=== PATIENT | male | born 1965 | race Caucasian/White ===

== ENCOUNTER 2018-11-24 17:20 | Emergency (ER) | payer BC ==
--- OUTSIDE RECORDS SUMMARY | 2018-11-24 17:21 | XMS REPORT ---
:1965 [facility] [address] [place] [address] Care Team Providers Name Role Phone Unavailable Unavailable Unavailable Problems This patient has no known problems. Allergies, Adverse Reactions, Alerts This patient has no known allergies or adverse reactions. Medications This patient has no known medications.
[2018-11-24] MEDS ORDERED: MEPERIDINE HCL 50 MG/ML AMP ONE (18:23)
[2018-11-24] MEDS ORDERED: ONDANSETRON 4 MG (ODT) TAB ONE (18:23)
[2018-11-24] MEDS ORDERED: DEXAMETHASONE 10 MG/ML VIAL ONE (18:23)
--- NOTE | 2018-11-24 18:50 | EDPHYS ---
Physician Documentation [facility] Name: Luis Marc Age: 53 yrs Sex: Male : 1965 Arrival Date: 11/24/2018 Time: 17:22 Bed 18 Private MD: Turner Delgado S ED Physician Jacob Vargas HPI: 11/24 17:58 This 53 yrs old Male presents to ER via Ambulatory with complaints of Low jr8 Back Pain. 17:58 The patient presents with pain that is acute. The symptoms are located in the low back. jr8 The pain does not radiate. The problem was sustained from unknown cause. Onset: The symptoms/episode began/occurred acutely, yesterday. Modifying factors: The patient symptoms are alleviated by nothing, the patient symptoms are aggravated by any movement. Associated signs and symptoms: The patient has no apparent associated signs or symptoms. Severity of symptoms: At their worst the symptoms were moderate, in the emergency department the symptoms are unchanged. The patient has experienced similar episodes in the past, a few times. The patient has not recently seen a physician. History of lumbar laminectomy and fusion in past. Has pain on/off. Starting yesterday had increase in pain. No numbness, tingling, saddle anesthesia, weakness, or inability to walk. No bowel or bladder incontinence . Historical: - Allergies: 17:27 No Known Allergies; hj - Home Meds: 17:27 Omeprazole Oral once daily [Active]; amlodipine oral [Active]; hj - PMHx: 17:27 GERD; Hypertension; hj - PSHx: 17:27 back srugery; hj - Immunization history:: Adult Immunizations up to date. - Social history:: Smoking status: Patient uses tobacco products, Patient uses alcohol. - Ebola Screening: : Patient negative for fever greater than or equal to 101.5 degrees Fahrenheit, and additional compatible Ebola Virus Disease symptoms Patient denies exposure to infectious person Patient denies travel to an Ebola-affected area in the 21 days before illness onset. ROS: 17:58 Eyes: Negative for injury, pain, redness, and discharge, ENT: Negative for injury, jr8 pain, and discharge, Neck: Negative for injury, pain, and swelling, Cardiovascular: Negative for chest pain, palpitations, and edema, Respiratory: Negative for shortness of breath, cough, wheezing, and pleuritic chest pain, Abdomen/GI: Negative for abdominal pain, nausea, vomiting, diarrhea, and constipation, MS/Extremity: Negative for injury and deformity, Skin: Negative for injury, rash, and discoloration, Neuro: Negative for headache, weakness, numbness, tingling, and seizure. 17:58 Back: Positive for pain at rest, pain with movement, of the low back area. Exam: 18:47 Eyes: Pupils equal round and reactive to light, extra-ocular motions intact. Lids and jr8 lashes normal. Conjunctiva and sclera are non-icteric and not injected. Cornea within normal limits. Periorbital areas with no swelling, redness, or edema. ENT: Nares patent. No nasal discharge, no septal abnormalities noted. Tympanic membranes are normal and external auditory canals are clear. Oropharynx with no redness, swelling, or masses, exudates, or evidence of obstruction, uvula midline. Mucous membranes moist. Neck: Trachea midline, no thyromegaly or masses palpated, and no cervical lymphadenopathy. Supple, full range of motion without nuchal rigidity, or vertebral point tenderness. No Meningismus. Cardiovascular: Regular rate and rhythm with a normal S1 and S2. No gallops, murmurs, or rubs. Normal PMI, no JVD. No pulse deficits. Respiratory: Lungs have equal breath sounds bilaterally, clear to auscultation and percussion. No rales, rhonchi or wheezes noted. No increased work of breathing, no retractions or nasal flaring. Abdomen/GI: Soft, non-tender, with normal bowel sounds. No distension or tympany. No guarding or rebound. No evidence of tenderness throughout. Skin: Warm, dry with normal turgor. Normal color with no rashes, no lesions, and no evidence of cellulitis. MS/ Extremity: Pulses equal, no cyanosis. Neurovascular intact. Full, normal range of motion. Neuro: Awake and alert, GCS 15, oriented to person, place, time, and situation. Cranial nerves II-XII grossly intact. Motor strength 5/5 in all extremities. Sensory grossly intact. Cerebellar exam normal. Normal gait. 18:47 Back: pain, that is mild, of the lumbar area, left low back and right low back, ROM is painful, normal spinal alignment noted, CVA tenderness, is absent, vertebral tenderness, is not appreciated, muscle spasm, is appreciated in the left low back and right low back. Vital Signs: 17:28 BP 133 / 90; Pulse 75; Resp 18; Temp 98.0(O); Pulse Ox 98% on R/A; Weight 113.4 kg; hj Height 6 ft. 1 in. (185.42 cm); Pain 9/10; 17:28 Body Mass Index 32.98 (113.40 kg, 185.42 cm) hj MDM: 17:47 Patient medically screened. jr8 18:47 Data reviewed: vital signs, nurses notes, and as a result, I will discharge patient. jr8 Data interpreted: Pulse oximetry: on room air is 98 %. Interpretation: normal. Counseling: I had a detailed discussion with the patient and/or guardian regarding: the historical points, exam findings, and any diagnostic results supporting the discharge/admit diagnosis, the need for outpatient follow up, spinal surgeon, to return to the emergency department if symptoms worsen or persist or if there are any questions or concerns that arise at home. Response to treatment: the patient's symptoms have markedly improved after treatment, and as a result, I will discharge patient. Administered Medications: 18:25 Drug: Demerol 50 mg Route: IM; Site: right deltoid; hb 19:08 Follow up: Response: No adverse reaction hb 18:25 Drug: Zofran 4 mg Route: PO; hb 19:08 Follow up: Response: No adverse reaction hb 18:25 Drug: Decadron 10 mg Route: IM; Site: right deltoid; hb 19:07 Follow up: Response: No adverse reaction hb Disposition: 11/25 06:48 Co-signature as Attending Physician, Jacob Vargas MD I agree with the assessment and joselin plan of care. Disposition: 11/24/18 18:48 Discharged to Home. Impression: Low back pain. - Condition is Stable. - Discharge Instructions: Back Pain, Adult, Musculoskeletal Pain, Heat Therapy. - Prescriptions for Tylenol- Codeine #3 300-30 mg Oral Tablet - take 2 tablets by ORAL route every 6 hours As needed; 20 tablet. Zanaflex 4 mg Oral Tablet - take 1 tablet by ORAL route every 8 hours As needed; 20 tablet. Medrol (Brandon) 4 mg Oral Tablets, Dose Pack - take 1 tablet by ORAL route as directed - follow package instructions; 1 packet. - Medication Reconciliation Form, Thank You Letter, Antibiotic Education, Prescription Opioid Use form. - Follow up: Private Physician; When: 5 - 6 days; Reason: Recheck today's complaints, Continuance of care, Re-evaluation by your physician. - Problem is new. - Symptoms have improved. Signatures: Jacob Vargas MD MD cha Roszak, Josh, PA PA jr8 Jose Niño RN RN Kelsie Reyes RN RN hb Corrections: (The following items were deleted from the chart) 11/24 19:12 18:48 11/24/2018 18:48 Discharged to Home. Impression: Low back pain. Condition is hb Stable. Forms are Medication Reconciliation Form, Thank You Letter, Antibiotic Education, Prescription Opioid Use. Follow up: Private Physician; When: 5 - 6 days; Reason: Recheck today's complaints, Continuance of care, Re-evaluation by your physician. Problem is new. Symptoms have improved. jr8
--- NOTE | 2018-11-24 18:50 | ER ---
Nurse's Notes [facility] Name: Luis Marc Age: 53 yrs Sex: Male : 1965 Arrival Date: 11/24/2018 Time: 17:22 Bed 18 Private MD: Turner Delgado S Diagnosis: Low back pain Presentation: 11/24 17:25 Presenting complaint: Patient states: i had back surgery back in 2017, i have this hj recurring pain, and its getting worse in the last 3-4 days; denies numbness, tingling on legs; pain level is 10/10;. Transition of care: patient was not received from another setting of care. Onset of symptoms was November 24, 2018. Risk Assessment: Do you want to hurt yourself or someone else? Patient reports no desire to harm self or others. Initial Sepsis Screen: Does the patient meet any 2 criteria? No. Patient's initial sepsis screen is negative. Does the patient have a suspected source of infection? No. Patient's initial sepsis screen is negative. Care prior to arrival: None. 17:25 Method Of Arrival: Ambulatory 17:25 Acuity: CASSIDY 4 hj Triage Assessment: 17:27 General: Appears in no apparent distress. uncomfortable, Behavior is calm, cooperative, hj appropriate for age. Pain: Complains of pain in back. Historical: - Allergies: 17:27 No Known Allergies; hj - Home Meds: 17:27 Omeprazole Oral once daily [Active]; amlodipine oral [Active]; hj - PMHx: 17:27 GERD; Hypertension; hj - PSHx: 17:27 back srugery; hj - Immunization history:: Adult Immunizations up to date. - Social history:: Smoking status: Patient uses tobacco products, Patient uses alcohol. - Ebola Screening: : Patient negative for fever greater than or equal to 101.5 degrees Fahrenheit, and additional compatible Ebola Virus Disease symptoms Patient denies exposure to infectious person Patient denies travel to an Ebola-affected area in the 21 days before illness onset. Screenin:27 Abuse screen: Denies threats or abuse. Denies injuries from another. Nutritional hj screening: No deficits noted. Tuberculosis screening: No symptoms or risk factors identified. Fall Risk None identified. Assessment: 18:00 General: Appears in no apparent distress. Behavior is calm, cooperative. Pain: Pain hb currently is 10 out of 10 on a pain scale. Neuro: Level of Consciousness is awake, alert, obeys commands, Oriented to person, place, time, situation. Cardiovascular: Capillary refill < 3 seconds Patient's skin is warm and dry. Respiratory: Airway is patent Respiratory effort is even, unlabored, Respiratory pattern is regular, symmetrical. GI: No signs and/or symptoms were reported involving the gastrointestinal system. : No signs and/or symptoms were reported regarding the genitourinary system. EENT: No signs and/or symptoms were reported regarding the EENT system. Derm: Skin is intact, is healthy with good turgor. Musculoskeletal: Reports low back pain. 19:00 Reassessment: Patient appears in no apparent distress at this time. Patient and/or hb family updated on plan of care and expected duration. Pain level reassessed. Patient is alert, oriented x 3, equal unlabored respirations, skin warm/dry/pink. Patient states feeling better. Patient states symptoms have improved. Vital Signs: 17:28 BP 133 / 90; Pulse 75; Resp 18; Temp 98.0(O); Pulse Ox 98% on R/A; Weight 113.4 kg; hj Height 6 ft. 1 in. (185.42 cm); Pain 9/10; 17:28 Body Mass Index 32.98 (113.40 kg, 185.42 cm) ED Course: 17:22 Patient arrived in ED. am2 17:23 Turner Delgado MD is Private Physician. am2 17:26 Triage completed. hj 17:27 Arm band placed on right wrist. hj 17:27 Patient has correct armband on for positive identification. Bed in low position. Call light in reach. Side rails up X 1. Adult w/ patient. 17:47 Bert Gongora PA is PHCP. jr8 17:47 Jacob Vargas MD is Attending Physician. jr8 18:12 Kelsie Perez, NATIVIDAD is Primary Nurse. hb 19:00 No provider procedures requiring assistance completed. Patient did not have IV access hb during this emergency room visit. Administered Medications: 18:25 Drug: Demerol 50 mg Route: IM; Site: right deltoid; hb 19:08 Follow up: Response: No adverse reaction hb 18:25 Drug: Zofran 4 mg Route: PO; hb 19:08 Follow up: Response: No adverse reaction hb 18:25 Drug: Decadron 10 mg Route: IM; Site: right deltoid; hb 19:07 Follow up: Response: No adverse reaction hb Outcome: 18:48 Discharge ordered by MD. beltran 19:11 Discharged to home ambulatory, with family. hb 19:11 Condition: stable hb 19:11 Discharge instructions given to patient, Instructed on discharge instructions, follow up and referral plans. medication usage, Demonstrated understanding of instructions, follow-up care, medications, Prescriptions given X 3. 19:12 Patient left the ED. hb Signatures: Bert Gongora PA PA jr8 Jose Niño RN RN Kelsie Perez RN RN Karen Pacheco am2 Corrections: (The following items were deleted from the chart) 17:30 17:28 Pulse 75bpm; Resp 18bpm; Pulse Ox 98% RA; Temp 98.0F Oral; 113.4 kg; Height 6 ft. hj 1 in.; BMI: 32.9; Pain 9/10; hj
== END 2018-11-24 19:12 | disposition home or self-care (01) ==
LOC: ER 17:20
DX: M54.5 Low back pain (principal); K21.9 Gastro-esophageal reflux disease without esophagitis; I10 Essential (primary) hypertension; Z98.890 Other specified postprocedural states; Z72.0 Tobacco use
CPT/HCPCS: 96372; 99283; J1100; J2175